=== PATIENT | female | born 1985 | race Caucasian/White ===

== ENCOUNTER 2025-01-10 14:51 | Outpatient (CLI) | payer OTHER, MEDICAID, SELFPAY ==
--- NOTE | ~2025-01-10 | CT_ITS ---
CT of the Abdomen and Pelvis: Indication: Abdominal pain Technique: 2.5 mm axial scans were obtained through the abdomen and pelvis following intravenous adm inistration of 100 cc of Omnipaque 350. Dose reduction technique was used on this scan by utilizing a utomated exposure control and iterative reconstruction technique. The dose-length product (DLP) was 2 85.40 mGy-cm. Findings: Scans through the lung bases are unremarkable. The liver, spleen, pancreas, gallbladder, adrenals and kidneys are within normal limits. No evidence of aortic aneurysm. No lymphadenopathy. No bowel obstruction or bowel wall thickening. There is no evidence to suggest acute appendicitis. Images through the pelvis were performed. Urinary bladder unremarkable. Small right adnexal cyst pres ent. IUD in place. No ascites. Impression: No significant abnormalities seen. IUD in place. Reviewed, dictated and finalized at [facility]. Impression: No significant abnormalities seen. IUD in place.
== END 2025-01-10 14:52 | disposition home or self-care (01) ==
LOC: MICIMG 14:53
PROVIDERS: PCP Internal Medicine; Visit Provider Internal Medicine
DX: R10.9 Unspecified abdominal pain (principal); Z97.5 Presence of (intrauterine) contraceptive device
CPT/HCPCS: 74177; Q9967

== ENCOUNTER 2025-04-10 14:46 | Outpatient (CLI) | payer OTHER, SELFPAY ==
--- NOTE | ~2025-04-10 | MR_ITS ---
EXAMINATION: MR brain/brain stem wo con DATE: 04/10/2025 15:21 INDICATION: Left eye pain TECHNIQUE: Magnetic resonance imaging (MRI) of the brain and brainstem was performed without intraven ous contrast. Sequences included sagittal and axial T1-weighted SE, axial diffusion-weighted FS SE, a xial 3D SWAN, axial T2-weighted FLAIR, and axial T2-weighted FSE. Apparent diffusion coefficient (ADC ) maps were created. COMPARISON: None. FINDINGS: There are no areas of restricted diffusion to suggest acute infarction. No intracranial hemorrhage or abnormal intracranial mass lesion. There are scattered areas of nonspecific increased T2-weighted si gnal intensity in the cerebral white matter, predominantly involving the deep and periventricular whi te matter. There are no intraparenchymal signal abnormalities seen on the other pulse sequences. The ventricles are symmetric and normal in size. There are no abnormal extra-axial fluid collections. Luis w voids are seen in the cerebral arteries on the T2-weighted sequences consistent with their expected patency. Mild mucosal thickening at the bilateral ethmoid sinuses. Visualized orbits and soft tissue s are unremarkable. IMPRESSION: 1. Mild mucosal thickening the bilateral ethmoid sinuses. Otherwise normal brain MR. Reviewed, dictated and finalized at [facility]. IMPRESSION: 1. Mild mucosal thickening the bilateral ethmoid sinuses. Otherwise normal brai n MR.
== END 2025-04-10 14:47 | disposition home or self-care (01) ==
LOC: GOSHIMG 14:46
PROVIDERS: PCP Internal Medicine; Visit Provider Internal Medicine
DX: H57.12 Ocular pain, left eye (principal)
CPT/HCPCS: 70551